=== PATIENT | female | born 1965 | race Caucasian/White ===

== ENCOUNTER 2016-11-30 09:49 | Emergency (ER) | payer OTHER ==
[~2016-11-30] VITALS: Ht 162.6 cm; Wt 97.5 kg
[~2016-11-30 09:49] MED LIST: ALBU8.5H3 INH; AMLO-145 PO; HYDR25TA6 PO; IBUP800T25 PO; OMEP40CA3 PO; RANI300T PO
[2016-11-30 09:52] VITALS: Ht 162.6 cm; Wt 97.5 kg
[2016-11-30] MEDS ORDERED: ONDANSETRON 4 MG INJ IV STA (11:23)
[2016-11-30] MEDS ORDERED: morphine 2 MG INJ IV STA (11:23)
[2016-11-30] MEDS ORDERED: FAMOTIDINE 20 MG INJ IV STA (11:23)
--- NOTE | 2016-11-30 12:10 | RADRPT ---
PROCEDURE: US Abdomen. CLINICAL INDICATION: abdominal pain TECHNIQUE: Multiple real-time images were acquired of the patient's right upper quadrant abdomen a nd retroperitoneum utilizing a high resolution transducer. COMPARISON: 09/21/2013 FINDINGS: The liver demonstrates increased echogenicity. The liver is enlarged in size and no focal solid les ions are seen. The liver measures 19 cm in length. The portal vein is patent with normal direction o f flow. No intrahepatic biliary dilatation is seen. The gallbladder is contracted and not well seen. No gallstones are identified within the gallbladde r. There is no pericholecystic fluid or gallbladder wall thickening. The common bile duct measures 3.5 mm in maximal dimension. The visualized portions of the pancreas are unremarkable. The tail is not well seen. No free fluid is identified. The right kidney is normal in size, and demonstrate normal echogenicity and cortical thickness. The right kidney measures 10.5 cm in long dimension. There is no evidence of hydronephrosis. There are no kidney stones. RPTAT: AA IMPRESSION: Mild hepatomegaly with diffuse fatty infiltration of the liver. Contracted gallbladder with no evidence of stones. .Francisco Coyne MD, Date Time Electronically viewed and signed by .Francisco Coyne MD, MD on 11/30/2016 12:10 .S/
[2016-11-30 12:34] LABS: ADD SCAN DIFF NO
[2016-11-30 12:39] LABS: BASOPHIL # 0.1 10^3/ul (0.0-0.1); BASOPHILS % 0.7 % (0.0-2.0); EOSINOPHILS # 0.3 10^3/ul (0.0-0.5); EOSINOPHILS % 3.7 % (0.0-7.0); HEMATOCRIT 42.6 % (37.0-47.0); HEMOGLOBIN 14.4 g/dl (12.0-16.0); LYMPHOCYTES # 2.3 10^3/ul (0.8-2.9); LYMPHOCYTES % 33.8 % (15.0-51.0); MEAN CORPUSCULAR HEMOGLOBIN 32.1 pg (29.0-33.0); MEAN CORPUSCULAR HGB CONC 33.8 g/dl (32.0-37.0); MEAN CORPUSCULAR VOLUME 94.9 fl (82.0-101.0); MEAN PLATELET VOLUME 11.5 fl (7.4-10.4); MONOCYTE # 0.7 10^3/ul (0.3-0.9); NEUTROPHIL # 3.5 10^3/ul (1.6-7.5); NEUTROPHILS % 51.7 % (39.0-77.0); PLATELET COUNT 232 10^3/UL (140-415); RED BLOOD COUNT 4.49 10^6/ul (4.20-5.40); RED CELL DISTRIBUTION WIDTH 12.5 % (11.5-14.5); WHITE BLOOD COUNT 6.8 10^3/ul (4.8-10.8)
[2016-11-30 12:40] LABS: ADD UMIC YES; URINE BILIRUBIN (Dip) NEGATIVE (NEGATIVE); URINE BLOOD (Dip) NEGATIVE (NEGATIVE); URINE COLOR LT. YELLOW (YELLOW); URINE GLUCOSE (Dip) NEGATIVE (NEGATIVE); URINE KETONES (Dip) NEGATIVE (NEGATIVE); URINE LEUKOCYTE ESTERASE (Dip) 1+ (NEGATIVE); URINE NITRITE (Dip) NEGATIVE (NEGATIVE); URINE TOTAL PROTEIN (Dip) NEGATIVE (NEGATIVE); URINE UROBILINOGEN (Dip) 0.2 E.U./dL (0.1-1.0)
[2016-11-30 12:50] LABS: BACTERIA,URINE MANY
[2016-11-30 12:56] LABS: ALBUMIN 4.3 g/dl (3.3-4.9)
[2016-11-30 12:57] LABS: POTASSIUM 3.4 mmol/L (3.5-5.1)
[2016-11-30 12:59] LABS: ALBUMIN/GLOBULIN RATIO 1.22; BILIRUBIN,INDIRECT 0.5 mg/dl (0-1.1); BILIRUBIN,TOTAL 0.5 mg/dl (0.2-1.3); CREATININE 0.85 mg/dl (0.44-1.00); TOTAL PROTEIN 7.8 g/dl (6.1-8.1)
[2016-11-30 13:00] LABS: CALCIUM 10.7 mg/dl (8.4-10.2)
[2016-11-30] MEDS ORDERED: CEPH-443 PO (13:30)
[2016-11-30] MEDS ORDERED: TRAM50TA2 PO (13:30)
[2016-11-30] MEDS ORDERED: FAMO-18 PO (13:30)
--- NOTE | 2016-11-30 13:36 | ERD ---
ER Documentation Chief Complaint Date/Time DATE: 11/30/16 TIME: 13:34 Chief Complaint abd pain with nausea x 3 days HPI This 51-year-old female presents with abdominal pain and nausea last 3 days. It is epigastric. She has history of gastritis but does not like to take medication. She takes proton pump inhibitor as needed but not daily. She denies fevers, vomiting diarrhea or urinary complaints. Her pain is primarily epigastric denies any significant right upper quadrant abdominal pain. ROS All systems reviewed and are negative except as per history of present illness. Medications Home Meds Active Scripts Cephalexin* (Keflex*) 500 Mg Capsule, 500 MG PO QID for 5 Days, CAP Prov:JAZZY BRYANT MD 11/30/16 Famotidine* (Pepcid*) 20 Mg Tablet, 20 MG PO BID for 4 Days, #30 TAB Prov:JAZZY BRYANT MD 11/30/16 Tramadol HCl (Tramadol HCl) 50 Mg Tablet, 50 MG PO Q4 Y for PAIN, #20 TAB Prov:JAZZY BRYANT MD 11/30/16 Ibuprofen* (Motrin*) 800 Mg Tab, 800 MG PO Q6, #30 TAB Prov:JUDITH BRADSHAW PA-C 11/23/15 Albuterol Sulfate* (Proair HFA*) 8.5 Gm Hfa.aer.ad, 2 PUFF INH Q4, #1 INHALER Prov:JUDITH BRADSHAW PA-C 11/23/15 Reported Medications Hydrochlorothiazide (Hydrochlorothiazide) 25 Mg Tablet, 25 MG PO DAILY 05/21/12 Amlodipine Besylate* (Amlodipine Besylate*) 5 Mg Tablet, 5 MG PO DAILY 05/21/12 Ranitidine Hcl* (Ranitidine Hcl*) 300 Mg Tablet, 300 MG PO HS 05/21/12 Omeprazole* (Prilosec*) 40 Mg Capsule.dr, 40 MG PO DAILY 05/21/12 Allergies Allergies: Coded Allergies: No Known Allergy (Unverified , 11/30/16) PMhx/Soc History of Surgery: Yes (C-SECT.) Anesthesia Reaction: No Hx Neurological Disorder: No Hx Respiratory Disorders: No Hx Cardiac Disorders: Yes (HTN; HIGH CHOLESTEROL) Hx Psychiatric Problems: No Hx Miscellaneous Medical Probl: No Hx Alcohol Use: No Hx Substance Use: No Hx Tobacco Use: No Smoking Status: Never smoker Physical Exam Vitals Vital Signs Date Time Temp Pulse Resp B/P Pulse Ox O2 Delivery O2 Flow Rate FiO2 11/30/16 09:52 98.2 71 18 123/84 97 Physical Exam Const: [] Alert, [id number] Head: Atraumatic Eyes: Normal Conjunctiva ENT: Normal External Ears, Nose and Mouth. Neck: Full range of motion..~ No meningismus. Resp: Clear to auscultation bilaterally Cardio: Regular rate and rhythm, no murmurs Abd: Soft, mild epigastric tenderness. No rebound. No exquisite Nino sign and no tenderness at McBurney's point. non distended. Normal bowel sounds Skin: No petechiae or rashes Back: No midline or flank tenderness Ext: No cyanosis, or edema Neur: Awake and alert Psych: Normal Mood and Affect Result Diagram: 11/30/16 1220 11/30/16 1220 Results 24 hrs Laboratory Tests Test 11/30/16 12:20 White Blood Count 6.810^3/ul Red Blood Count 4.4910^6/ul Hemoglobin 14.4g/dl Hematocrit 42.6% Mean Corpuscular Volume 94.9fl Mean Corpuscular Hemoglobin 32.1pg Mean Corpuscular Hemoglobin Concent 33.8g/dl Red Cell Distribution Width 12.5% Platelet Count 77344^3/UL Mean Platelet Volume 11.5fl Neutrophils % 51.7% Lymphocytes % 33.8% Monocytes % 10.0% Eosinophils % 3.7% Basophils % 0.7% Nucleated Red Blood Cells % 0.0/100WBC Neutrophils # 3.510^3/ul Lymphocytes # 2.310^3/ul Monocytes # 0.710^3/ul Eosinophils # 0.310^3/ul Basophils # 0.110^3/ul Nucleated Red Blood Cells # 0.010^3/ul Urine Color LT. YELLOW Urine Clarity CLEAR Urine pH 6.0 Urine Specific [place] 1.015 Urine Ketones NEGATIVE Urine Nitrite NEGATIVE Urine Bilirubin NEGATIVE Urine Urobilinogen 0.2 E.U./dL Urine Leukocyte Esterase 1+ Urine Microscopic RBC 5-10/HPF Urine Microscopic WBC 5-10/HPF Urine Epithelial Cells FEW Urine Bacteria MANY Urine Hemoglobin NEGATIVE Urine Glucose NEGATIVE% Urine Total Protein NEGATIVE Sodium Level 140mmol/L Potassium Level 3.4mmol/L Chloride Level 100mmol/L Carbon Dioxide Level 28mmol/L Anion Gap 15 Blood Urea Nitrogen 19mg/dl Creatinine 0.85mg/dl Glucose Level 89mg/dl Calcium Level 10.7mg/dl Total Bilirubin 0.5mg/dl Direct Bilirubin 0.00mg/dl Indirect Bilirubin 0.5mg/dl Aspartate Amino Transf (AST/SGOT) 49IU/L Alanine Aminotransferase (ALT/SGPT) 70IU/L Alkaline Phosphatase 102IU/L Total Protein 7.8g/dl Albumin 4.3g/dl Globulin 3.50g/dl Albumin/Globulin Ratio 1.22 Lipase 101U/L Current Medications Medications (Trade) Dose Ordered Sig/Darleen Route PRN Reason Start Time Stop Time Status Last Admin Dose Admin Morphine Sulfate (morphine) 2 mg ONCE STAT IV 11/30/16 11:23 11/30/16 11:29 DC 11/30/16 12:30 Ondansetron HCl (Zofran Inj) 4 mg ONCE STAT IV 11/30/16 11:23 11/30/16 11:29 DC 11/30/16 12:30 Famotidine (Pepcid Iv) 20 mg ONCE STAT IV 11/30/16 11:23 11/30/16 11:29 DC 11/30/16 12:30 Procedures/MDM CBC normal and CMP shows slight transaminitis minimal no signs of obstruction and lipase is normal. Urine shows 1+ leukocytes and bacteria. Right upper quadrant ultrasound shows no evidence of gallstones or no acute findings. Patient was given Pepcid 20 mg IV and morphine 2 mg IV. Patient presents with epigastric abdominal pain with history of gastritis without evidence of hepatobiliary disease, appendicitis, obstruction, acute abdomen. Suspect she has an exacerbation of her gastritis. Patient will be treated with Pepcid and instructed to take omeprazole daily instead of as needed. She will be given tramadol as well. Patient was advised to avoid foods which may exacerbate gastritis. The patient was stable with no new complaints during the ER course. Clinically, there is no current evidence to suggest meningitis, sepsis, acute abdomen, pneumonia, acute coronary syndrome, pulmonary embolism, or any other emergent condition appearing to require further evaluation or hospitalization. The patient should certainly return for any new or worsening symptoms per the aftercare instructions. They should otherwise follow-up with her primary care doctor for reevaluation this week. Departure Diagnosis: Primary Impression: Abdominal pain Abdominal location: epigastric Qualified Code: R10.13 - Epigastric pain Condition: Stable Patient Instructions: Abdominal Pain, Gastritis (Adult) Additional Instructions: Examinations normal today except for mild infection in urine. Likely gastritis. Recommend take omeprazole every day for at least 2 weeks. Recheck with primary doctor or for new or worsening symptoms. Avoid foods or medication (Advil or Motrin or Naprosyn ) which may worsen gastritis. JAZZY BRYANT MD November 30, 2016 13:36
[2016-11-30 14:21] VITALS: BP 118/76; PULSE 84; RESP 18; TEMP 98.2
== END 2016-11-30 14:21 | disposition home or self-care (01) ==
LOC: FTE 09:49
DX: R10.13 Epigastric pain (principal); R11.0 Nausea; I10 Essential (primary) hypertension
CPT/HCPCS: 36415; 76705; 80053; 81001; 83690; 85025; 96374; 96375; J2270; J2405; Z7502; Z7610; 81003